=== PATIENT | male | born 1965 | race Two or more races ===

== ENCOUNTER 2017-02-01 11:45 | Day surgery (SDC) | payer MEDICAID ==
[~2017-02-01] VITALS: Ht 170.2 cm; Wt 97.9 kg
[2017-02-01] MEDS ORDERED: LIDOCAINE 2%, 20ML ONE (12:37)
[2017-02-01 12:49] VITALS: BP 125/80
[2017-02-01] MEDS ORDERED: SODIUM CHLORIDE 0.9% 1,000 ML IV SCH ×2 (13:00→13:08)
[2017-02-01] MEDS ORDERED: FENTANYL PF 100 MCG/2ML ONE (13:22)
[2017-02-01] MEDS ORDERED: MIDAZOLAM 1 MG/ML, 5ML ONE (13:22)
[2017-02-01] MEDS ORDERED: NALOXONE 1 MG/ML, 2ML ONE (13:23)
[2017-02-01] MEDS ORDERED: FLUMAZENIL 0.1 MG/1 ML, 5ML ONE (13:23)
[2017-02-01] MEDS ORDERED: CEFAZOLIN PMX 1GM/50ML 50 ML IVPB ONE (13:30)
[2017-02-01] MEDS ORDERED: OMNIPAQUE 350 MG/ML, 100ML BOTTLE ONE (14:03)
[2017-02-01] MEDS ORDERED: HYDROcodone/APAP 5/325 TABLET ONE (14:39)
[2017-02-01] MEDS ORDERED: PHENAZOPYRIDINE 200 MG TABLET ONE (14:50)
== END 2017-02-01 15:10 ==
LOC: OUT 11:45
PROVIDERS: ATTEND Urology
DX: N13.2 Hydronephrosis with renal and ureteral calculous obstruction (principal); N28.1 Cyst of kidney, acquired; I10 Essential (primary) hypertension; E11.9 Type 2 diabetes mellitus without complications; E78.00 Pure hypercholesterolemia, unspecified; Z87.39 Personal history of other diseases of the musculoskeletal system and connective tissue
CPT/HCPCS: 50432; 74177; J3490; J7030; Q9967; J2250; J3010; J2310